=== PATIENT | female | born 1995 | race Caucasian/White ===

== ENCOUNTER 2023-02-23 09:45 | Outpatient (CLI) | payer BC ==
[2023-02-23 14:51] LABS: BASOPHILS % (AUTO) 0.5 %; EOSINOPHILS % (AUTO) 0.5 %; HCT - HEMATOCRIT 39.6 % (37.0-47.0); HGB - HEMOGLOBIN 13.1 g/dL (12.0-16.0); LYMPHOCYTES % (AUTO) 18.6 %; MEAN CORPUSCULAR HEMOGLOBIN 31.2 pg (27.0-31.0); MEAN CORPUSCULAR HGB CONC 33.1 g/dL (32.0-36.0); MEAN CORPUSCULAR VOLUME 94.3 fL (81.0-99.0); MEAN PLATELET VOLUME 8.9 fL (7.9-10.8); MONOCYTES # (AUTO) 0.3 10^3/uL (0.0-1.0); MONOCYTES % (AUTO) 5.5 %; NEUTROPHILS # (AUTO) 4.1 10^3/uL (1.5-6.6); NEUTROPHILS % (AUTO) 74.5 %; PLT - PLATELET COUNT 233 10^3/uL (130-450); RED CELL DISTRIBUTION WIDTH 12.2 % (12.0-15.0); WHITE BLOOD COUNT 5.5 x10^3/uL (4.8-10.8)
[2023-02-23 15:11] LABS: BILIRUBIN,URINE NEGATIVE (NEGATIVE); GLUCOSE, URINE (UA) NEGATIVE (NEGATIVE); KETONES,URINE (UA) NEGATIVE (NEGATIVE); LEUKOCYTE ESTERASE, URINE NEGATIVE (NEGATIVE); NITRITE,URINE NEGATIVE (NEGATIVE); OCCULT BLOOD,URINE NEGATIVE (NEGATIVE); PROTEIN,URINE NEGATIVE (NEGATIVE); UROBILINOGEN,URINE 0.2 (NORMAL) E.U./dL (NORMAL)
[2023-02-23 15:18] LABS: CLARITY,URINE CLEAR (CLEAR)
[2023-02-23 15:28] LABS: BACTERIA,URINE Few /HPF (None Seen); RBC,URINE None Seen /HPF (0-5); SQUAMOUS EPITHELIAL CELL,UR FEW Squamous (<= Few); WBC,URINE 0-3 /HPF (0-5)
[2023-02-24 02:08] LABS: HCV AB Non Reactive (Non Reactive)
[2023-02-24 03:09] LABS: HIV SCREEN 4TH GENERATION Non Reactive (Non Reactive)
[2023-02-24 04:08] LABS: HBsAG SCREEN Negative (Negative); RPR Non Reactive (Non Reactive)
[2023-02-24 09:09] LABS: VARICELLA-ZOSTER AB IGG 1609 index (Immune >165)
== END 2023-02-23 09:46 | disposition home or self-care (01) ==
LOC: LAB.S 09:45
PROVIDERS: ATTEND Nurse Practitioner
DX: Z34.90 Encounter for supervision of normal pregnancy, unspecified, unspecified trimester (principal)
CPT/HCPCS: 36415; 81001; 85025; 86592; 86762; 86787; 86803; 86850; 86900; 86901; 87086; 87340; 87389

== ENCOUNTER 2023-03-03 16:04 | Outpatient (CLI) | payer BC ==
--- NOTE | 2023-03-06 11:57 | Ultrasound Report ---
PROCEDURE: OB 1st Trimester INDICATIONS: POSITIVE TEST OUTSIDE/PRIOR DATING DATA: Last menstrual period (LMP): 11/29/2022. LMP-based estimated date of delivery (AUGUSTINA): 09/05/2023. First dating scan (date and location): 03/03/2023. Estimated date of delivery (AUGUSTINA) from first dating scan: 09/06/2023. TECHNIQUE: Real-time scanning was performed of the fetus and maternal pelvic organs, with image documentation. COMPARISON: None. FINDINGS: Intrauterine gestational sac present. Embryo: Single fetus with a crown-rump length of 7.01 cm corresponding to a 13 week 2 day gestation. Heart rate: 147 bpm. Other: The placenta is developing posteriorly. No perigestational hemorrhage. Measurement variability in dating: +/- 4 weeks by LMP, +/- 7 days by mean sac diameter (use before 6 weeks gestation if crown-rump length not able to be measured), +/- 5 days by crown-rump length (6-12 weeks gestation). Maternal organs: Ovaries appear within normal limits. Maternal cervix is closed. IMPRESSION: 1. Single live intrauterine with sonographic gestational age of 13 weeks 2 days. Reviewed by: Mikala Crowley MD on 03/06/2023 11:55 AM PST Approved by: Mikala Crowley MD on 03/06/2023 11:55 AM PST Station ID: [id number]
== END 2023-03-03 16:05 | disposition home or self-care (01) ==
LOC: DI 16:04
PROVIDERS: ATTEND Nurse Practitioner
DX: Z34.91 Encounter for supervision of normal pregnancy, unspecified, first trimester (principal)

== ENCOUNTER 2023-07-12 08:00 | Outpatient (CLI) | payer OTHER ==
[2023-07-12 20:32] LABS: BACTERIAL VAGINOSIS DNA POSITIVE (NEGATIVE); CANDIDA GLABRATA DNA NEGATIVE (NEGATIVE); CANDIDA GROUP DNA POSITIVE (NEGATIVE); CANDIDA KRUSEI DNA NEGATIVE (NEGATIVE); TRICHOMONAS VAGINALIS DNA NEGATIVE (NEGATIVE)
== END 2023-07-12 23:59 | disposition home or self-care (01) ==
LOC: LAB.WC 08:00
PROVIDERS: ATTEND Obstetrics & Gynecology
DX: O99.719 Diseases of the skin and subcutaneous tissue complicating pregnancy, unspecified trimester (principal); L29.8 Other pruritus
CPT/HCPCS: 36415; 81514; 82950; 85027; 86592; 87661; 87801

== ENCOUNTER 2023-07-12 09:52 | Outpatient (CLI) | payer OTHER ==
[2023-07-12 11:07] LABS: HCT - HEMATOCRIT 38.4 % (37.0-47.0); HGB - HEMOGLOBIN 12.7 g/dL (12.0-16.0); MEAN CORPUSCULAR HEMOGLOBIN 31.7 pg (27.0-31.0); MEAN CORPUSCULAR HGB CONC 33.1 g/dL (32.0-36.0); MEAN CORPUSCULAR VOLUME 95.8 fL (81.0-99.0); MEAN PLATELET VOLUME 7.8 fL (7.9-10.8); RED BLOOD COUNT 4.01 10^6/uL (4.20-5.40); RED CELL DISTRIBUTION WIDTH 12.5 % (12.0-15.0); WHITE BLOOD COUNT 9.8 x10^3/uL (4.8-10.8)
[2023-07-13 08:10] LABS: RPR Non Reactive (Non Reactive)
== END 2023-07-12 09:53 | disposition home or self-care (01) ==
LOC: LAB 09:52
PROVIDERS: ATTEND Obstetrics & Gynecology
DX: Z34.90 Encounter for supervision of normal pregnancy, unspecified, unspecified trimester (principal)
CPT/HCPCS: 36415; 82950; 85027; 86592

== ENCOUNTER 2023-07-18 15:04 | Outpatient (CLI) | payer BC, OTHER ==
--- NOTE | 2023-07-18 19:52 | Ultrasound Report ---
PROCEDURE: OB Anatomy Scan INDICATIONS: SUPERVISION OF OUTSIDE/PRIOR DATING DATA: Last menstrual period (LMP): 11/29/2022. LMP-based estimated date of delivery (AUGUSTINA): 09/05/2023. First dating scan (date and location): 03/03/2023. Estimated date of delivery (AUGUSTINA) from first dating scan: 09/06/2023. The below data below was generated using the study generated AUGUSTINA of 09/06/2023 TECHNIQUE: Real-time scanning was performed of the fetus, with image documentation and biometric measurements. Endovaginal scanning: Not performed. COMPARISON: 03/03/2023 FINDINGS: General: A single living intrauterine gestation is present. Presentation: Vertex Placenta: Placental position is posterior, without previa. Amniotic fluid index: 13.2 cm, within normal limits for gestational age. heart rate: 148 beats per minute. Maternal cervical canal: Not evaluated. biometrics: Biparietal diameter: 8.14 cm, 32 weeks, 5 days, 34.6% Head circumference: 29.6 cm, 32 weeks, 6 days, 11.6% Abdominal circumference: 28.12 cm, 32 weeks, 1 day, 26.5% Femur length: 6.16 cm, 32 weeks, 0 day, 14.3%. Estimated gestational age from initial scan: 33 weeks, 0 day Composite gestational age from present scan: 32 weeks, 3 days Estimated weight and percentile: 1925.3 g, 19.4% Measurement variability in biometric dating: +/- 10 days from 12-20 weeks gestation, +/- 2 weeks from 20-30 weeks gestation, +/- 3 weeks at 30 weeks gestation or later. Anatomic survey: Neuro: Ventricles are normal at less than 10 mm. Cisterna magna and cerebellum are not well seen on this study. Nuchal skin fold: Not evaluated. Face: Nose and lips, facial profile are normal. Spine: No evidence for spina bifida. Heart: 4-chambered heart is present, with normal ventricular outflow tracts. Diaphragm: Diaphragm is intact. Stomach: Left-sided stomach is present. Kidneys: No hydronephrosis. Normal is less than 5 mm in 2nd trimester, less than 7 mm in 3rd trimester. Cord: 3 vessel cord has orthotopic insertion. Bladder: Normal in size. Extremities: All 4 extremities are visualized. IMPRESSION: 1. Single live intrauterine gestation with fetus in vertex presentation. heart rate is 148 bpm. Normal CHRISTA at 13.2 cm. 2. Estimated weight is at 19.4%. 3. structures are suboptimally evaluated due to position. Rest of the anatomic surv ey is normal. Reviewed by: Jerzy Peters MD on 07/18/2023 7:50 PM PDT Approved by: Jerzy Peters MD on 07/18/2023 7:50 PM PDT Station ID: [id number]
== END 2023-07-18 15:05 | disposition home or self-care (01) ==
LOC: DI 15:04
PROVIDERS: ATTEND Obstetrics & Gynecology
DX: Z34.93 Encounter for supervision of normal pregnancy, unspecified, third trimester (principal); Z36.89 Encounter for other specified antenatal screening

== ENCOUNTER 2023-08-02 13:34 | Outpatient (CLI) | payer OTHER ==
--- NOTE | 2023-08-02 18:28 | Ultrasound Report ---
PROCEDURE: OB Follow up INDICATIONS: SUPERVISION OF OUTSIDE/PRIOR DATING DATA: Last menstrual period (LMP): 11/29/2022. LMP-based estimated date of delivery (AUGUSTINA): 09/05/2023. First dating scan (date and location): 03/03/2023. Estimated date of delivery (AUGUSTINA) from first dating scan: 09/06/2023. TECHNIQUE: Real-time scanning was performed of the fetus, with image documentation and biometric measurements. COMPARISON: OB ultrasound 07/18/2023 FINDINGS: General: A single living intrauterine gestation is present. Presentation: Vertex Placenta: Placental position is posterior, without previa. Amniotic fluid index: 18.3 cm, within normal limits for gestational age. heart rate: 148 beats per minute. Maternal cervical canal: Not assessed biometrics: Estimated gestational age from initial scan: 35 weeks 0 days Other: Reevaluation the intracranial contents demonstrate them to be grossly within normal limits. Nu chal region is not evaluated secondary to gestational age. IMPRESSION: Single live intrauterine measuring 35 weeks 0 days. Intracranial contents are grossly unremarkable. Reviewed by: Anabel Sauceda MD on 08/02/2023 6:26 PM PDT Approved by: Anabel Sauceda MD on 08/02/2023 6:26 PM PDT Station ID: [id number]
== END 2023-08-02 13:35 | disposition home or self-care (01) ==
LOC: DI 13:34
PROVIDERS: ATTEND Obstetrics & Gynecology
DX: Z34.93 Encounter for supervision of normal pregnancy, unspecified, third trimester (principal)

== ENCOUNTER 2023-08-02 13:35 | Outpatient (CLI) | payer OTHER ==
--- NOTE | 2023-08-03 10:21 | Ultrasound Report ---
LIMITED ULTRASOUND OF RIGHT BREAST: 08/02/2023 CLINICAL: Right nipple bloody discharge during current . No prior exams were available for comparison. Color flow ultrasound of the right breast 3 o'clock, 6 o'clock, 9 o'clock, 12 o'clock, and retroareol ar regions was performed. Bloom scale images of the real-time examination were reviewed. Dilated ducts are present on ultrasound, benign. IMPRESSION: BENIGN There is no sonographic evidence of malignancy. Dilated ducts are present on ultrasound, benign. Patient reports pink and milky discharge without flores blood. Clinical evaluation recommended. If dis charge is clinically suspicious, recommend further workup with mammography and possible MRI. This exam was interpreted at Station ID: [id number]. Electronically Signed By: Inder Perez M.D. lc/:08/02/2023 14:42:41 letter sent: No_Letter Ultrasound BI-RADS: 2 Benign BI-RADS CATEGORY: (2) - 2 Unspecified - other recall n/a LATERALITY: (B)
--- NOTE | 2023-08-03 10:21 | Ultrasound Report ---
LIMITED ULTRASOUND OF LEFT BREAST: 08/02/2023 CLINICAL: Left Nipple bloody discharge during current . No prior exams were available for comparison. Color flow ultrasound of the left breast 3 o'clock, 6 o'clock, 9 o'clock, 12 o'clock, and retroareol ar regions was performed. Bloom scale images of the real-time examination were reviewed. Dilated ducts are present on ultrasound, benign. IMPRESSION: BENIGN There is no sonographic evidence of malignancy. Dilated ducts are present on ultrasound, benign. Patient reports pink and milky discharge without flores blood. Clinical evaluation recommended. If dis charge is clinically suspicious, recommend further workup with mammography and possible MRI. This exam was interpreted at Station ID: [id number]. Electronically Signed By: Inder Perez M.D. lc/:08/02/2023 14:43:16 letter sent: No_Letter Ultrasound BI-RADS: 2 Benign BI-RADS CATEGORY: (2) - 2 Unspecified - other recall n/a LATERALITY: (B)
== END 2023-08-02 13:36 | disposition home or self-care (01) ==
LOC: DI 13:35
PROVIDERS: ATTEND Obstetrics & Gynecology
DX: O99.891 Other specified diseases and conditions complicating pregnancy (principal); N64.52 Nipple discharge

== ENCOUNTER 2023-08-09 08:00 | Outpatient (CLI) | payer OTHER | END 2023-08-09 23:59 | disposition home or self-care (01) | LOC: LAB.WC 08:00 | PROVIDERS: ATTEND Obstetrics & Gynecology | DX: Z36.85 Encounter for antenatal screening for Streptococcus B (principal) | CPT/HCPCS: 87797 ==

== ENCOUNTER 2023-08-24 08:00 | Outpatient (CLI) | payer OTHER ==
[2023-08-24 17:03] LABS: BACTERIAL VAGINOSIS DNA POSITIVE (NEGATIVE); CANDIDA GLABRATA DNA NEGATIVE (NEGATIVE); CANDIDA GROUP DNA POSITIVE (NEGATIVE); CANDIDA KRUSEI DNA NEGATIVE (NEGATIVE); TRICHOMONAS VAGINALIS DNA NEGATIVE (NEGATIVE)
== END 2023-08-24 23:59 | disposition home or self-care (01) ==
LOC: LAB.WC 08:00
PROVIDERS: ATTEND Obstetrics & Gynecology
DX: L29.8 Other pruritus (principal)
CPT/HCPCS: 81514

== ENCOUNTER 2023-09-09 12:13 | Inpatient (IN) | payer OTHER ==
[2023-09-09] MEDS ORDERED: CARBOPROST TROMETHAMINE 250 MCG/ML VIAL IM PRN (14:07)
[2023-09-09] MEDS ORDERED: miSOPROStoL 200 MCG TABLET PR PRN (14:07)
[2023-09-09] MEDS ORDERED: TERBUTALINE 1 MG/ML VIAL SUBQ PRN (14:07)
[2023-09-09] MEDS ORDERED: lidocaine 1% 20 ML MDV ID PRN (14:07)
[2023-09-09] MEDS ORDERED: LACTATED RINGERS 1,000 ML IV PRN (14:07)
[2023-09-09] MEDS ORDERED: TRANEXAMIC ACID IN NACL 1,000 MG/100 ML BAG IV PRN (14:07)
[2023-09-09] MEDS ORDERED: OXYTOCIN/SODIUM CHLORIDE 500 ML IV PRN (14:07)
[2023-09-09] MEDS ORDERED: SODIUM CHLORIDE FLUSH 0.9% 10 ML SYRINGE IVP PRN (14:07)
[2023-09-09] MEDS ORDERED: miSOPROStoL 200 MCG TABLET BC PRN (14:07)
[2023-09-09] MEDS ORDERED: METHYLERGONOVINE 0.2 MG/ML VIAL IM PRN (14:07)
[2023-09-09] MEDS ORDERED: OXYTOCIN 10 UNIT/ML VIAL IM PRN (14:07)
--- NOTE | 2023-09-09 14:18 | HISTORY & PHYSICAL EXAMINATION ---
Admit History - Visit Reason Visit Reason: Contractions - : 1 Parity: 0 Premature: 0 Ectopic: 0 : 0 Care: positive: [facility] Risk/History: positive: None Complications This : positive: None - Mother's Labs Mother's Blood Type: positive: B Mother's RH: positive: Positive GBS: positive: Group B Step Negative Rubella Status: positive: Immune - Other Maternal History Other Maternal History: HPI: This 28 yo G1P @ 40+4 weeks by sure LMP (11/29/22) and confirmed by 13+2 week ultrasound. Has been jose raul intermittently the last few days. She was able to get sleep last night but the contraction pain woke her up about 0900 this morning. They continued to become stronger and closer together. Upon arrival her cervix was 2cm/90/0, posterior and vertex with intact membranes. She was breathing through her contractions, continued to feel them getting stronger. Very tearful. She was offered to stay and be reevaluated in a few hours for cervical change or be discharged to further labor at home. She opted for the revaluation. However, the pain continued to intensify and she verbalized desire for admission to [facility] as she would feel most comfortable here at the hospital for this stage in her labor. Desires continued expectant labor management. She has been a patient of [facility] clinic through her . She had an insurance barrier and was unable to receive care from 16-30 weeks but remained in contact with the clinic during that time. Otherwise, she has been seen at the recommended intervals for her care. Her has remained uncomplicated. ROS: No Headache, visual changes or right upper quadrant abdominal pain. Denies urinary urgency or dysuria. Denies nausea or vomiting. All other symptoms reviewed and were negative except per HPI. Dating criteria: LMP: 11/29/2022 AUGUSTINA by LMP: 09/05/2023 03/03/2023 /13+2 /C/W dates Final AUGUSTINA: 09/05/2023 serial Exams agree OB Hx: G1: current Medical Hx: Chrones. Has not been problematic this . Surgical Hx: None Social Hx: Monogamous with male partner. Denies any alcohol, tobacco, marijuana or other recreational drugs. Family Hx: Denies family history of congenital anomalies, Cystic Fibrosis or chromosomal abnormalities. FOB cousin has sickle cell trait. EFW by u/s: 07/18/2023 (FAS), 19.4% Total maternal weight gain: 40.2# Pre- Weight:139.8 BMI: 23.35 Blood type: B+ Antibody: Negative CBC: PLT 233 HCT 39.6 HGB 13.1 RUB: Immune VZV: Immune HBsAg: Negative HepC: NR RPR/AB-EIA: NR HIV: NR PAP: 07/01/21 - normal GC/CT: declines HSV: denies in self and partner Genetic testing: Covid: declines Flu:declines FAS: Placenta: Posterior Cord:3VC CHRISTA: normal EFW: 1925g 19.4%ile Cisterna magna and cerebellum NOT well seen. F/U 08/02/23- WNL 1HR GTT: - 81 TDAP:07/11 Breast Pump:06/27 3rd trimester H/H/PLT 12.7/38.4 plt 207 GBS:Collected 08/08 PCN ALLERGY Negative Delivery plan: unmedicated if possible, low intervention. Contraception: Previously used IUD, but did not like this due to persistent bleeding. Physical exam: Normocephalic, atraumatic Lungs: no increased work of breathing. Abdomen gravid, soft, nontender. EFW 3300 FHR baseline 130s, moderate variability, + accelerations, no decelerations Contractions palpate moderate every 3-4 minutes with soft resting tone SVE 2/90/0, vertex, membranes intact Bilateral LE's trace edema Mood is good. Assessment: 28 yo @ 40+4 weeks gestation by 13+2 wk U/S Early labor FHR 130s Cat I GBS NEG Plan: Admit to [facility] for Expectant management Continuous monitoring Jacuzzi PRN. Nitrous oxide PRN. Epidural PRN Maternal Request. Anticipate . Patient verbally consents to, and stated her excitement for, my participation in her care in my role as a student nurse station operator. IVONNE Albright, Student Nurse Loft Rigger (Hoa Reilly) - HPI Current EDU 09/05/23 Gestation 40 Weeks and 4 Days 1 Para 0 Vital Signs Temperature 98.1 F 09/09/23 12:26 Heart Rate 73 09/09/23 12:26 Respiratory Rate 20 09/09/23 12:26 Blood Pressure 138/81 H 09/09/23 12:26 Temperature 98.4 F 09/10/23 19:20 Heart Rate 83 09/10/23 19:20 Respiratory Rate 16 09/10/23 19:20 Blood Pressure 128/67 09/10/23 19:20 O2 Saturation 97 09/10/23 19:20 If not protocol: Oxygen Flow, liters/minute - NST Procedure NST Procedure Start Date 09/09/23 Start Time 12:23 Stop Time 13:07 Vibroacoustic Stimulation Used No Patient States Movement Yes Meds/Allgy - Home Medications Home Medications: Ambulatory Orders Medication Instructions Recorded Confirmed Pnv No.95/Ferrous Fum/Folic AC 1 each PO DAILY 09/09/23 09/09/23 [ Tablet] - Allergies Allergies/Adverse Reactions: Allergies Allergy/AdvReac Type Severity Reaction Status Date / Time amoxicillin Allergy Rash Verified 09/09/23 14:20 gluten Allergy Nausea Verified 09/09/23 14:20 Physical - Abdominal Exam Vital Signs: Temp Pulse Resp BP Pulse Ox O2 Flow Rate 98.4 F 83 16 128/67 97 09/10/23 19:20 09/10/23 19:20 09/10/23 19:20 09/10/23 19:20 09/10/23 19:20 Plan for Labor - Plan For Labor I expect patient to be DC'd or transferred within 96 hours.: Yes - Plan For Labor Plan for Labor: agree with above. patient seen and examined. (Shanell Santiago)
[2023-09-09] MEDS ORDERED: SODIUM CHLORIDE FLUSH 0.9% 10 ML SYRINGE IVP SCH (15:00)
[2023-09-09 16:49] LABS: BASOPHILS % (AUTO) 0.2 %; EOSINOPHILS % (AUTO) 0.1 %; HCT - HEMATOCRIT 38.9 % (37.0-47.0); HGB - HEMOGLOBIN 12.6 g/dL (12.0-16.0); LYMPHOCYTES # (AUTO) 0.9 10^3/uL (1.5-3.5); LYMPHOCYTES % (AUTO) 5.2 %; MEAN CORPUSCULAR HEMOGLOBIN 30.8 pg (27.0-31.0); MEAN CORPUSCULAR HGB CONC 32.4 g/dL (32.0-36.0); MEAN CORPUSCULAR VOLUME 95.1 fL (81.0-99.0); MEAN PLATELET VOLUME 8.8 fL (7.9-10.8); MONOCYTES # (AUTO) 0.7 10^3/uL (0.0-1.0); NEUTROPHILS # (AUTO) 15.1 10^3/uL (1.5-6.6); NEUTROPHILS % (AUTO) 89.7 %; PLT - PLATELET COUNT 266 10^3/uL (130-450); RED BLOOD COUNT 4.09 10^6/uL (4.20-5.40); RED CELL DISTRIBUTION WIDTH 12.8 % (12.0-15.0); WHITE BLOOD COUNT 16.8 x10^3/uL (4.8-10.8)
[2023-09-09] MEDS: ONDANSETRON 4 MG/2 ML VIAL IVP PRN (17:16)
--- NOTE | 2023-09-09 17:28 | PROVIDER PROGRESS NOTE ---
<Hoa Reilly - Last Filed: 09/09/23 17:36> Labor Progress Note - Uterine Monitoring Uterine Monitoring Mode: positive: External toco Contraction Frequency (min/apart): q2-4 Contraction Intensity: positive: Strong Uterine Resting Tone: positive: Soft - Monitoring Monitor Mode: positive: External ultrasound Heart Rate Baseline: 135 Heart Rate Variability: positive: Minimal (0-5 bpm), Moderate (6-25 bmp) Accelerations: positive: Present, 15x15 Decelerations: positive: Variable Strip Review: positive: Category I, Category II - Vaginal Exam Dilation (in cm): 7.5 Effacement (%): 100 Station: 0 Cervical Position: Midposition - Labor Progress Note Labor Progress Note/Additional Text: S: Breathing well through contractions which have increased in intensity since her arrival. Some nausea. no emesis. Describes throwing up as one of her worst fears. States pain "isn't so bad, I've had Crohn's my entire life." Desires SVE to evaluate labor progress. Does not desire augmentation by AROM at this time. O: FHR 130s, minimal to moderate variability. Accelerations present but infrequent. Occasional variable with resolution to baseline SVE 7.5/100/0, intact, vertex. A: 28yo @ 40.4 wks gestation by 13+2 week ultrasound. Active labor Unmedicated labor Nausea without emesis GBS negative P: IV zofran administered by RN per existing prn order Continue encouragement and labor support. Anticipate . IVONNE Albright, Student Nurse Fmd Teacher <Shanell Santiago - Last Filed: 09/09/23 18:25> Labor Progress Note - Labor Progress Note Labor Progress Note/Additional Text: Agree with above. patient seen and examined
[2023-09-09] MEDS: ONDANSETRON 4 MG/2 ML VIAL IVP ONE (19:57)
[2023-09-09] MEDS ORDERED: WITCH HAZEL/GLYCERIN 1 PAD TOP PRN (22:40)
[2023-09-09] MEDS ORDERED: HYDROCORTISONE 1% CREAM 28 GM TUBE PR PRN (22:40)
--- NOTE | 2023-09-09 22:49 | DELIVERY NOTE ---
<Hoa Reilly - Last Filed: 09/09/23 22:49> Delivery Note - Labor Labor: positive: Spontaneous - Infant Delivery Method Delivery Method: positive: Spontaneous vaginal delivery - Presentation Presentation: positive: Vertex, OA - occiput anterior - Nuchal Cord Nuchal Cord: positive: None - Anesthetic Anesthetic Type: - Amniotic Fluid Description Amniotic Fluid Description: positive: Clear - Episiotomy Type Episiotomy Type: positive: None - Laceration Laceration: positive: 2nd degree, Perineal, Vaginal - Suture Suture Type: positive: Vicryl Suture Size: positive: 3-0 - Delivery Outcome Delivery Outcome: positive: Livebirth - [place]: positive: Placed in direct skin contact with mother, Bulb syringe, Stimulated, [place] used [place] sex: positive: Female - Cord Cord: positive: 3 vessels - Placenta Placenta: positive: Spontaneous - Estimated Blood Loss Estimated Blood Loss (in cc): 250 - Post Delivery Events Post Delivery Events: positive: No post delivery events - Delivery Comments (Free Text/Narrative) Delivery Comments (Free Text/Narrative): This 28 yo G1P @ 40+4 weeks by sure LMP (11/29/22) and confirmed by 13+2 week ultrasound presented to L&D in early labor and in good condition. Upon Cervix was 2/90/0, posterior and Vertex presentation by exam. GBS negative, no treatment indicated. FHR pattern demonstrated 130s baseline and primarily category I prior to second stage. Normal, unmedicated, and non-augmented labor course. SROM occurred @ 192. She then progressed to complete/complete @ 2018 and second stage bega @ 2031. : Normal spontaneous vaginal delivery of a viable female on 09/09/2023 @ 2136. No nuchal cord. The was placed on maternal abdomen, stimulated, dried and placed skin to skin. Apgars 9 @ 1 min, and 9 @5 minutes. Weight: 3651g. The umbilical cord was allowed to stop pulsating at which time it was doubly clamped by delivering provider and cut by FOB. 3VC. Cord blood was obtained. Patient declined active management of third stage. placenta delivered spontaneously and intact @2153 EBL 250cc. Placenta was WAS NOT sent to pathology. Uterine massage was performed until uterus was deemed firm. Inspection of the perineum noted a second degree perineal laceration extending to the sidewall. This was repaired with a running suture of 3-0 Vicryl (rapide) Upon re-inspection the patient was hemostatic. Uterus again massaged and found to be firm. Needle and sponge counts were correct. Fourth stage: Uterine fundus firm and there is no excessive bleeding. The perineum, vagina and cervix were again inspected, tissues well approximated. Family bonding well. Both mother and baby are both in stable condition. Patient verbally consented to my participation in her care as well a my role in her delivery. IVONNE Albright, Student Nurse Bottle Packer <Shanell Santiago - Last Filed: 09/10/23 21:40> Delivery Note - Delivery Comments (Free Text/Narrative) Delivery Comments (Free Text/Narrative): I was present for the second stage and with [place]. -DJL
[2023-09-09] MEDS: ACETAMINOPHEN 500 MG TABLET PO PRN (23:12)
[2023-09-09] MEDS: IBUPROFEN 800 MG TABLET PO SCH (23:13)
--- NOTE | 2023-09-10 12:58 | Discharge Plan ---
Discharge Plan Problem Reviewed?: Yes Disposition: Home, Self Care Diet: Regular Activity Restrictions: No Restrictions Shower Restrictions: No Driving Restrictions: No Weight Bearing: Full Weight Instruction Topics: Vaginal, Breastfeed How To, No Smoking: If you smoke, Please STOP! Call for help. Follow-up with: Hoa Reilly ARNP [Provider Admit Priv/Credential] -
--- NOTE | 2023-09-10 12:59 | DISCHARGE SUMMARY ---
<Hoa Reilly - Last Filed: 09/10/23 19:11> Discharge Summary Admit Date: 09/09/23 Discharge Date: 09/10/23 Discharging Provider: Dr. Santiago Code Status: Attempt Resuscitation Condition at Discharge: Good Discharge Disposition: 01 Home, Self Care - HPI History of Present Illness: Date of Admission: 09/09/2023 Date of Discharge: 09/10/2023 Diagnosis on admission: 1. 28 yo G1P @ 40+4 weeks by sure LMP (11/29/22) and confirmed by 13+2 week ultrasound 2. Early labor 3. GBS negative Diagnosis on Discharge 1. 28 yo 2. S/P vaginal delivery 3. PP day #1 4. Second degree perineal laceration with vaginal extensions (repaired) Brief History: She is a patient of [facility] who presented on 09/09/2023 with complaints of contractions. She was found to be jose raul regularily and quickly progressed from 2cm to complete. Labor progressed naturally without medication pain management. She spontaneously delivered a viable female apgars 9&9 @ 1 and 5 minutes respectively. EBL 250 ml. Second degree perineal laceration with vaginal extension repaired in usual fashion. She has been doing well in her course. She is ambulating and tolerating a regular diet. Had small, formed stool. She is urinating without difficulty and her lochia is normal. Describes her discomfort as "soreness but not bad." She will be discharged to home today on day 1 and encouraged to continue with prn IBU and colace. Will have her follow-up with clinic for 1 week appointment by telehealth. She has been given precautions to call if she has any any new or worsening sx such as fevers, chills, abdominal pain, increasing bleeding, or foul smelling vaginal lochia. preeclamptic precautions reviewed as well. IVONNE Albright, Student Nurse Underliner - ALLERGIES Allergies/Adverse Reactions: Allergies Allergy/AdvReac Type Severity Reaction Status Date / Time amoxicillin Allergy Rash Verified 09/09/23 14:20 gluten Allergy Nausea Verified 09/09/23 14:20 - MEDICATIONS Home Medications: Ambulatory Orders Medication Instructions Recorded Confirmed Pnv No.95/Ferrous Fum/Folic AC 1 each PO DAILY 07/13/24 07/13/24 [ Tablet] - LABS Result Diagrams: 09/09/23 16:40 <Shanell Santiago - Last Filed: 09/10/23 21:32> Discharge Summary - LABS Result Diagrams: 09/09/23 16:40 - FOLLOW UP Follow Up: agree with plan. patient seen and examined today by me as well as Hoa
--- NOTE | 2023-09-10 19:19 | PROVIDER PROGRESS NOTE ---
<Hoa Reilly - Last Filed: 09/10/23 19:21> Subjective - Prog Note Date Prog Note Date: 09/10/23 Prog Note Time: 12:00 - Subjective Pt reports feeling: Improved Subjective: Patient reports she is doing well. Comfortable WITHOUT pain managment Lochia appropriate. Denies heavy bleeding. Ambulating. Tolerating oral intake. Diet: Regular. Voiding without difficulty. Passing flatus. Had small BM today Patient is bonding with baby in room Breast feeding going okay. May desire additional Nursing support. Denies feeling lightheaded, dizzy or excessively fatigued. Objective - Vital Signs/Intake & Output Reviewed Vital Signs: Yes Vital Signs: Vital Signs x48h Temp Pulse Resp BP BP Pulse Ox 09/10/23 17:05 36.8 C 78 16 122/76 96 09/10/23 13:00 36.8 C 87 16 134/77 H 98 Intake & Output: Intake & Output 09/07/23 09/08/23 09/09/23 09/10/23 23:59 23:59 23:59 23:59 Output Total 800 Balance -800 - Lab Results Fish Bones: 09/09/23 16:40 - Other Results/Comments Other Results/Comments: General: Alert, oriented, no apparent distress. Cardiovascular: Trace edema to bilateral lower extremities. Lungs: No increased work of breathing. Abdomen: Uterus firm. Below umbilicus. No guarding or rebound tendernes. Extremities: No pain on palpation. Distal pulses intact. ABX Reporting Has patient been on IV antibiotics over the past 48 hours?: No Assessment/Plan - Problem List (1) Vaginal delivery Impression: 28 yo , S/P vaginal delivery. PP day #1 over second degree perineal laceration. - routine care - anticipate discharge tonight or tomorrow. (2) Exclusive by mother Impression: Continue mannequin decorator support. IVONNE Albright, Student Nurse Manager Wholesale <Shanell Santiago - Last Filed: 09/10/23 21:28> Objective - Vital Signs/Intake & Output Vital Signs: Vital Signs x48h Temp Pulse Resp BP BP Pulse Ox 09/10/23 19:20 98.4 F 83 16 128/67 97 09/10/23 17:05 98.2 F 78 16 122/76 96 Intake & Output: Intake & Output 09/07/23 09/08/23 09/09/23 09/10/23 23:59 23:59 23:59 23:59 Output Total 800 Balance -800 - Lab Results Fish Bones: 09/09/23 16:40 Assessment/Plan - Problem List (1) Vaginal delivery Impression: patient seen and examined. agree with above note and plan of care. TAMERAL
[2023-09-10 19:29] VITALS: O2SAT 97
[2023-09-10] MEDS: DOCUSATE SODIUM 100 MG CAPSULE PO SCH (21:32)
--- NOTE | 2023-09-11 10:28 | DISCHARGE SUMMARY ---
Discharge Summary Admit Date: 09/09/23 Discharge Date: 09/11/23 Discharging Provider: Dread Tse MD Code Status: Attempt Resuscitation Condition at Discharge: Good Discharge Disposition: 01 Home, Self Care - DIAGNOSES Admission Diagnoses: 40 weeks gestation term labor Discharge Diagnoses with Status of Each Condition: Same Delivery of live lam Status post spontaneous vaginal delivery. - HPI History of Present Illness: Subjective Patient reports she is doing well. Lochia appropriate. Denies heavy bleeding. Ambulating. Pelvic and abdominal pain well-controlled. Tolerating oral intake. Diet: Regular. Voiding without difficulty. Passing flatus. Denies BM. Patient is bonding with baby in room Breast feeding going well. Denies feeling lightheaded, dizzy or excessively fatigued. Objective General: Alert, oriented, no apparent distress. Cardiovascular: Regular rate. Regular rhythm. Lungs: No increased work of breathing. Abdomen: Uterus firm. Below umbilicus at last assessment Extremities: No pain on palpation. - HOSPITAL COURSE Hospital Course: Patient is a 28-year-old G1 now P1 status post spontaneous vaginal delivery. She presented to [facility] on 09/09/2023 with contractions and was in term labor. She progressed to complete and had a spontaneous vaginal delivery with a live lam . course was unremarkable, and initially ongoing at home on day 1, but continue to work on breast-feeding. day 2 was uneventful and she felt much more comfortable and was discharged with her . Apgars: 9/9 weight: 3651 g. - ALLERGIES Allergies/Adverse Reactions: Allergies Allergy/AdvReac Type Severity Reaction Status Date / Time amoxicillin Allergy Rash Verified 09/09/23 14:20 gluten Allergy Nausea Verified 09/09/23 14:20 - MEDICATIONS Home Medications: Ambulatory Orders Medication Instructions Recorded Confirmed Pnv No.95/Ferrous Fum/Folic AC 1 each PO DAILY 09/09/23 09/09/23 [ Tablet] - LABS Result Diagrams: 09/09/23 16:40 - FOLLOW UP Follow Up: With [facility] women's care in 1 week. - TIME SPENT Time Spent in Discharge (Minutes): 20
--- NOTE | 2023-09-11 11:00 | PHARMACY PROGRESS NOTE ---
- Best Possible Medication History Admit Date and Time: 09/09/23 1407 Processed by: Pharmacy Medications reviewed in ED?: No Medication History completed: Yes Patient Interview: Pt unable to participate Secondary Source(s): Physician records, Insurance records As the person ultimately responsible for medication therapy, providers are able to order a medication from an existing home medication list in [facility] via the "Reconcile Routine" prior to Confirmation of that medication by client application support specialist. Such practice is discouraged except when the physician, in their clinical judgment, deems that a medical need exists for a medication without regard to previous use.
--- NOTE | 2023-09-11 13:28 | Labor Flowsheet ---
Labor Flowsheet Datetime Report Generated by CPN: 09/11/2023 13:28 Datetime: 09/11/2023 12:42 VITAL SIGNS NBP Sys/Shannon/Mean (mmHg): 133 : 80 : 92 Pulse: 112 LaborFlag: Labor Datetime: 09/10/2023 09:04 SpO2 (%): 98 Datetime: 09/10/2023 02:11 Membranes Ruptured Date/Time: 09/09/2023 19:25 Datetime: 09/09/2023 21:30 UTERINE ACTIVITY Monitor Mode: External Frequency (min): 2-3 Quality: Strong Duration (sec): 50-90 Pattern: Normal: <= 5 Contractions in 10 Minutes Resting Tone (Palpate): Relaxed ASSESSMENT A Monitor Mode: External US FHR Baseline Rate : 135 Accelerations: None Decelerations: Early; Variable Category: Category II Datetime: 09/09/2023 21:15 Variability: Moderate 6-25 bpm Datetime: 09/09/2023 21:09 STAGE 2 Pushing: Urge to Push Pushing Position: Pushing with Contractions Pushing Progress: Descent with Pushing Datetime: 09/09/2023 20:34 COMMUNICATION Communication: RN Reviewed Strip Communication Comments: Report given to Aishwarya RN. Lenard Patient care relinquished. Datetime: 09/09/2023 20:00 Monitor Interventions for FHR: Ultrasound Adjusted Comments: MHT audible Patient Position/Activity: Hands-Knees Datetime: 09/09/2023 19:57 MEDICATIONS Antiemetics/Antacids: Zofran (mg) @ 4 Datetime: 09/09/2023 19:25 VAGINAL EXAM Dilatation (cm): 9.0 Effacement (%): 100 Station: 1 Exam by: IVONNE Rush Membrane Status: Ruptured Membranes Rupture Method: Artificial Amniotic Fluid Color: Clear Amniotic Fluid Amount: Moderate Amniotic Fluid Odor: None Vaginal Bleeding: Normal Show Datetime: 09/09/2023 17:30 Patient Care Comments: hands and knees, on peanut ball Datetime: 09/09/2023 17:09 Cervix, Position: Anterior Datetime: 09/09/2023 16:20 PATIENT CARE IV/Blood Work: IV Started Datetime: 09/09/2023 15:38 I/O Interventions: Up to BR Datetime: 09/09/2023 15:26 Cervix, Consistency: Soft Datetime: 09/09/2023 13:53 Stage of : Labor
[2023-09-11 13:34] VITALS: BP 133/80
== END 2023-09-11 13:26 | disposition home or self-care (01) | DRG 806 ==
LOC: WFO 12:13 → FBP 12:18 → WFO 14:06 → FBP 14:07
PROVIDERS: ADMIT Obstetrics & Gynecology; ATTEND Obstetrics & Gynecology
PROC: 10E0XZZ Delivery of Products of Conception, External Approach (ICD-10-PCS; principal; 2023-09-09)
PROC: 0KQM0ZZ Repair Perineum Muscle, Open Approach (ICD-10-PCS; 2023-09-09)
DX: O99.62 Diseases of the digestive system complicating childbirth (principal); K50.90 Crohn's disease, unspecified, without complications; Z37.0 Single live birth; O70.1 Second degree perineal laceration during delivery; Z3A.40 40 weeks gestation of pregnancy
CPT/HCPCS: 59025; 59409; 85025; 86850; 86900; 86901; 99215; A9270

== ENCOUNTER 2023-11-20 08:00 | Outpatient (CLI) | payer OTHER ==
[2023-11-20 23:24] LABS: BACTERIAL VAGINOSIS DNA NEGATIVE (NEGATIVE); CANDIDA GLABRATA DNA NEGATIVE (NEGATIVE); CANDIDA GROUP DNA NEGATIVE (NEGATIVE); CANDIDA KRUSEI DNA NEGATIVE (NEGATIVE); TRICHOMONAS VAGINALIS DNA NEGATIVE (NEGATIVE)
== END 2023-11-20 23:59 | disposition home or self-care (01) ==
LOC: LAB.WC 08:00
PROVIDERS: ATTEND Nurse Practitioner
DX: L29.8 Other pruritus (principal)
CPT/HCPCS: 81514